=== PATIENT | male | born 1950 | race Caucasian/White ===

== ENCOUNTER 2022-11-25 20:47 | Observation (INO) | payer MEDICARE, OTHER ==
[2022-11-25 21:10] LABS: CHLORIDE,CL 97 mEq/L (98-106); SODIUM,NA 131 mEq/L (136-145)
[2022-11-25 21:11] LABS: ESTIMATED GFR 54 mL/min (>=60)
[2022-11-25] MEDS: Sodium Chloride 0.9% 1,000 ML IV SCH (21:36)
[2022-11-25] MEDS ORDERED: chlorproMAZINE 50 MG/2 ML Amp IM ONE (22:10)
[2022-11-25] MEDS ORDERED: Acetaminophen 325 MG Tab PO PRN (23:16)
[2022-11-25] MEDS ORDERED: Ondansetron 4 MG/2 ML SDV IV PRN (23:16)
[2022-11-26] MEDS: Sodium Chloride 0.9% 1,000 ML IV SCH (03:00)
[2022-11-26] MEDS ORDERED: Sodium Chloride 0.9% 1,000 ML IV SCH (03:00)
[2022-11-26] MEDS ORDERED: Lisinopril 5 MG Tab PO SCH (08:00)
[2022-11-26] MEDS ORDERED: ATORVASTATIN 80 MG PO SCH (08:00)
[2022-11-26] MEDS ORDERED: Metoprolol Tartrate 50 MG Tab PO SCH (08:00)
[2022-11-26] MEDS ORDERED: Aspirin 81 MG Tab.EC PO SCH (08:00)
[2022-11-26] MEDS ORDERED: Loratadine 10 MG Tab PO ONE (09:56)
[2022-11-26 12:04] VITALS: BP 90/52; PULSE 67
[2022-11-26] MEDS ORDERED: Prochlorperazine 10 MG Tab PO ONE (13:34)
[2022-11-26] MEDS ORDERED: predniSONE 20 MG Tab PO STA (13:36)
[2022-11-27] MEDS ORDERED: predniSONE 20 MG Tab PO SCH (12:00)
== END 2022-11-26 14:27 | disposition home or self-care (01) ==
LOC: CC.ED 20:47 → CC.MS 23:07 → UNDOADMOB 23:43 → CC.MS 23:43 → UNDODISOB 11-26 14:27
PROVIDERS: ADMIT Nurse Practitioner Family; ATTEND Nurse Practitioner Family
DX: J44.1 Chronic obstructive pulmonary disease with (acute) exacerbation (principal); J31.0 Chronic rhinitis; F17.210 Nicotine dependence, cigarettes, uncomplicated; R06.6 Hiccough; E87.1 Hypo-osmolality and hyponatremia; R79.89 Other specified abnormal findings of blood chemistry; Z79.899 Other long term (current) drug therapy; Z79.82 Long term (current) use of aspirin; Z20.822 Contact with and (suspected) exposure to COVID-19
CPT/HCPCS: 36415; 70360; 71045; 80053; 83735; 85025; 87804; 93005; 96360; 96361; 96372; 99285-25; A9270-GY; G0378; J3230; J7030; J7512; Q0164; U0002